=== PATIENT | male | born 1960 | race Caucasian/White ===

== ENCOUNTER 2022-12-27 06:04 | Outpatient (REF) | payer MEDICARE, MEDICAID, SELFPAY ==
[2022-12-27 06:24] LABS: MANUAL DIFF FLAG NO
[2022-12-27 06:42] LABS: Basophils Absolute Auto 0.1 X10*3/uL (0.0-0.2); Basophils Percent Auto 0.9 % (0-2); Eosinophils Absolute Auto 0.2 X10*3/uL (0.0-0.4); Hematocrit 35.7 % (42.0-52.0); Hemoglobin 11.9 g/dl (14.0-18.0); Imm Gran Abs Auto 0.04 X10*3/uL (0.00-0.03); Imm Gran Pct Auto 0.7 % (0.0-0.4); Lymphocytes Absolute Auto 0.5 X10*3/uL (1.2-4.9); Lymphocytes Percent Auto 8.1 % (20-40); Mean Corpuscular HGB Conc 33.3 g/dl (31.0-36.0); Mean Corpuscular Hemoglobin 29.8 pg (27.0-33.0); Mean Corpuscular Volume 89.5 fL (80.0-98.0); Monocytes Absolute Auto 0.7 X10*3/uL (0.1-1.2); Monocytes Percent Auto 11.8 % (2-11); Neutrophils Absolute Auto 4.3 x10*3/uL (2.0-8.3); Neutrophils Percent Auto 74.5 % (45-73); Platelet Count 215 X10*3/uL (160-400); Red Blood Count 3.99 X10*6/uL (4.60-5.80); Red Cell Distribution Width 13.2 % (11.0-16.0); White Blood Count 5.7 X10*3/uL (4.8-10.8)
[2022-12-27 07:22] LABS: Alanine Aminotransferase 13 U/L (0-40); Albumin Level 3.3 g/dL (3.5-5.0); Alkaline Phosphatase 80 U/L (39-117); Aspartate Amino Transferase 19 U/L (5-37); Bilirubin Total 0.7 mg/dL (0.0-1.0); Blood Urea Nitrogen 54 mg/dL (9-16); Calcium 8.8 mg/dL (8.4-10.2); Glucose Random 97 mg/dL (60-115); Total Protein 6.2 g/dL (6.5-8.0)
[2022-12-27 07:29] LABS: Anion Gap 21 (12-20); Carbon Dioxide 26 mmol/L (22-29); Chloride 95 mmol/L (96-108); Potassium 4.5 mmol/L (3.3-5.1); Sodium 137 mmol/L (135-145)
[2022-12-27 07:49] LABS: Estimated Glomerular Filt Rate 7
== END 2022-12-27 06:05 | disposition home or self-care (01) ==
LOC: HO.MMNH2L 06:04
PROVIDERS: Visit Provider Family Medicine
DX: Z02.2 Encounter for examination for admission to residential institution (principal); N17.9 Acute kidney failure, unspecified
CPT/HCPCS: 36415; 80053; 85025